=== PATIENT | male | born 1985 | race Two or more races ===

== ENCOUNTER 2019-08-22 13:05 | Emergency (ER) | payer OTHER ==
[~2019-08-22] VITALS: Ht 180.3 cm; Wt 67.1 kg
[2019-08-22 13:14] VITALS: BP 142/43
--- NOTE | 2019-08-22 13:15 | NUR ---
CORTNEY BERTRAND TIRE GROOVER AT BEDSIDE FOR EVAL.
[2019-08-22] MEDS ORDERED: IBUPROFEN 400 MG TABLET ONE (13:23)
--- NOTE | 2019-08-22 13:26 | NUR ---
PT IS WHEELED TO RADIOLOGY VIA [facility]
[2019-08-22] MEDS ORDERED: IBUPROFEN 400 MG TABLET PO ONE (13:30)
--- NOTE | 2019-08-22 14:23 | NUR ---
Patient discharged to home in stable condition. Written and verbal after care instructions given. Patient verbalizes understanding of instruction.
--- NOTE | 2019-08-22 14:24 | NUR ---
Nasreen bear in ED - 08/22/19 at 1426 by GAYATHRI PT WALKED OUT REFUSE TO SIGN MD AND CHARGE NURSE AWARE.
== END 2019-08-22 14:26 | disposition home or self-care (01) ==
LOC: ER 13:05
DX: S50.01XA Contusion of right elbow, initial encounter (principal); S39.82XA Other specified injuries of lower back, initial encounter; V09.9XXA Pedestrian injured in unspecified transport accident, initial encounter; Y93.89 Activity, other specified; Y92.488 Other paved roadways as the place of occurrence of the external cause; Y99.8 Other external cause status
CPT/HCPCS: 72100-TC; 73080-TC

== ENCOUNTER 2025-07-03 22:28 | Emergency (ER) | payer OTHER ==
[~2025-07-03] VITALS: Ht 172.7 cm; Wt 77.1 kg
[2025-07-03] MEDS ORDERED: IBUPROFEN 600 MG TABLET ONE (22:51)
[2025-07-03] MEDS ORDERED: ONDANSETRON 4 MG TAB.RAPDIS ONE (22:52)
[2025-07-03] MEDS: IBUPROFEN 600 MG TABLET PO ONE (22:55)
[2025-07-03] MEDS: ONDANSETRON 4 MG TAB.RAPDIS SL ONE (22:55)
[2025-07-03 23:16] VITALS: BP 128/75; TEMP 98.2; O2SAT 97
== END 2025-07-03 23:16 ==
LOC: ER 22:30
DX: R51.9 Headache, unspecified (principal); R11.0 Nausea; Z60.2 Problems related to living alone
CPT/HCPCS: 99283; Q0162